=== PATIENT | female | born 1980 | race Caucasian/White ===

== ENCOUNTER 2019-10-30 20:51 | Outpatient (REF) | payer SELFPAY ==
[2019-11-03 23:17] LABS: SARS-CoV-2 RNA Undetected (Undetected); SARS-CoV-2 Specimen Source Nasopharynx
== END 2019-10-30 21:11 ==
LOC: NCHCN 20:51
PROVIDERS: PCP Family Medicine; Visit Provider Nurse Practitioner Family
DX: R50.9 Fever, unspecified (principal); R05 Cough; R51 Headache
CPT/HCPCS: U0003

== ENCOUNTER 2020-03-19 02:32 | Outpatient (CLI) | payer OTHER, SELFPAY ==
[2020-03-19 07:38] LABS: HCT 40.7 % (36.0-46.0); HGB 13.6 g/dL (11.2-15.7); MCH 30.8 pg (27.0-33.0); MCHC 33.4 % (32.0-36.0); MCV 92.1 fL (80-95); MPV 9.3 fL (8.0-11.0); Platelet Count 312 10^3/uL (130-400); RBC 4.42 10^6/uL (3.93-5.22); WBC 5.11 10^3/uL (4.4-10.8)
[2020-03-19 08:21] LABS: ALT 31 U/L (14-59); AST 14 U/L (15-37); Albumin 3.7 g/dL (3.4-5.0); Alkaline Phosphatase 52 U/L (46-116); Anion Gap 6.1 mmol/L (3-11); BUN 20 mg/dL (7-18); Bilirubin, Total 0.5 mg/dL (0.2-1.0); CO2 27.9 mmol/L (21.0-32.0); Calcium 8.8 mg/dL (8.5-10.1); Calculated LDL 61 mg/dL (<100); Chloride 102 mmol/L (98-107); Cholesterol 159 mg/dL (<200); Glucose 107 mg/dL (74-106); HDL Cholesterol 82 mg/dL (40-60); Potassium 4.3 mmol/L (3.5-5.1); Sodium 136 mmol/L (136-145); TSH (W/Ref FT4) 2.16 uIU/mL (0.36-3.74); Total Protein 6.9 g/dL (6.4-8.2); Triglyceride 82 mg/dL (<150)
== END 2020-03-19 02:52 ==
PROVIDERS: PCP Family Medicine; Visit Provider Family Medicine
DX: Z00.00 Encounter for general adult medical examination without abnormal findings (principal); F41.8 Other specified anxiety disorders; K21.9 Gastro-esophageal reflux disease without esophagitis
CPT/HCPCS: 36415; 80053; 80061; 85027; 84443

== ENCOUNTER 2020-05-28 15:51 | Outpatient (REF) | payer OTHER, SELFPAY ==
--- NOTE | 2020-05-28 15:00 | PAPFT_PTH ---
PATIENT: Bee Ramriez LOC: [facility]#:[id number] AGE/SX: 40/F ROOM: RE05/28/[address]: Lilliana Mcmillan : 1980 BED: DIS: 05/28/2020 SPEC #: [id number] RECD: 05/31/20 12:57 STATUS: [place] #: [id number] KYLER: 05/28/20 15:[address]: Lilliana Mcmillan DEPT: [facility] Cytology RECD BY: Imelda Brar Tissues: 1 - CX/ENDOCX FOR PAP SMEARS Procedures: PAP THIN PREP/UVM Screening HPV DNA PROBE Comments: [id number]
== END 2020-05-28 15:52 | disposition home or self-care (01) ==
LOC: NCHCN 15:51
PROVIDERS: PCP Family Medicine; Visit Provider Family Medicine
DX: Z00.00 Encounter for general adult medical examination without abnormal findings (principal); Z12.4 Encounter for screening for malignant neoplasm of cervix; Z01.419 Encounter for gynecological examination (general) (routine) without abnormal findings; Z11.51 Encounter for screening for human papillomavirus (HPV)
CPT/HCPCS: 88142; 87624

== ENCOUNTER 2022-04-25 14:04 | Emergency (ER) | payer OTHER, SELFPAY ==
--- NOTE | 2022-04-25 14:00 | DI.RAD_ITS ---
Exam(s) XR WRIST LT COMPLETE EXAM: XR WRIST LT COMPLETE CLINICAL HISTORY: Left wrist pain. TECHNIQUE: 2D digital imaging was performed. COMPARISON: No exams were available for comparison FINDINGS: 3 views No evidence of acute fracture or dislocation. Scaphoid and lunate appear unremarkable as does the sc apholunate distance. There is negative ulnar variance by approximately 5 millimeters incidentally no niranjan. No osseous lesions. IMPRESSION: No acute osseous findings. Negative ulnar variance incidentally noted. DATA REPOSITORY: RADIATION DOSE DELIVERED:
[2022-04-25 14:07] VITALS: BP 150/94; PULSE 99; TEMP 37.5; O2SAT 100
--- NOTE | 2022-04-25 14:11 | ED.GENADUL_ITS ---
Discharge Plan Disposition Patient Disposition: Home Condition: Stable Discharge Details Clinical Impression: Arthralgia of left wrist Primary Care Provider: Lilliana Mcmillan ED Provider: Dian Desai Home Meds and New Rx's Prescriptions: New diclofenac sodium 1 % gel 2 g topical QID PRN (Reason: joint pain) Qty: 100 0RF Rx Instructions: apply to single elbow, wrist or hand; for hand includes palm/fingers/back of hand No Action ibuprofen 200 MG tablet 800 mg PO PRN PRN buspirone 5 MG tablet 10 mg PO BID ondansetron 4 MG tablet,disintegrating 4 mg PO Q6H PRNQty: 15 0RF magnesium 500 mg Tablet 500 mg PO DAILY clonazepam 0.5 mg tablet 0.25 mg PO PRN PRN Patient Comments: Take 1 tablet by mouth once a day as needed dextroamphetamine-amphetamine 20 mg capsule,extended release 24hr 20 mg PO BID norethindrone ac-eth estradiol 1-20 mg-mcg tablet 1 tab PO DAILY cholecalciferol (vitamin D3) [Vitamin D3] 25 mcg (1,000 unit) Capsule 1,000 unit PO DAILY duloxetine [Cymbalta] 30 mg capsule,delayed release(DR/EC) 30 mg PO DAILY omeprazole 20 mg tablet,delayed release (DR/EC) 20 mg PO DAILY Patient Comments: Take 1 tablet by mouth once a day Discharge Instructions Instructions: Arthralgia (ED) Additional Instructions: The x-rays show no acute injury however you do have slight variance on your ulnar bone. This could be contributing to your pain. If you continue to have pain after using the splint as needed for comfort, and applying the topical gel please follow-up with orthopedics if needed. For further evaluation and treatment. Please take Tylenol or Ibuprofen with food every 4-6 hours as needed for pain and swelling. Follow up with primary care provider in 3-5 days. Return to ED sooner if any worsening or concerns. Increase oral fluids. Stand Alone Forms: Work Release Referrals: Lilliana Mcmillan [Primary Care Provider] - 5 days Antony López MD [ [facility] STAFF PHYSICIAN] - 2 weeks Medical Decision Making X-ray ordered to rule out arthritis. See x-ray results below no acute osseous findings. There is a incidental negative ulnar variance noted. Will place patient in a universal wrist splint instructed on RICE procedures and follow-up if needed. This text was generated using [employer] dictation system, please disregard any oddities of phrase or misspellings. Imaging Data Radiologic Study: Imaging: X-Ray Radiologist's impression: EXAM: XR WRIST LT COMPLETE CLINICAL HISTORY: Left wrist pain. TECHNIQUE: 2D digital imaging was performed. COMPARISON: No exams were available for comparison FINDINGS: 3 views No evidence of acute fracture or dislocation. Scaphoid and lunate appear unremarkable as does the scapholunate distance. There is negative ulnar variance by approximately 5 millimeters incidentally noted. No osseous lesions. IMPRESSION: No acute osseous findings. Negative ulnar variance incidentally noted. HPI General Mode of arrival: ambulatory . Date/Time Provider Initiated Documentation: 04/25/22 14:08 . Limitations to Documentation: no limitations . Information obtained by: patient, RN notes reviewed and old records reviewed . HPI Narrative: 42-year-old female presents to the ER with chief complaint of left wrist pain which began acutely today. She does however report some aching while she has been sleeping. Denies any known injury. She does have pinpoint tenderness on the radial aspect of her volar wrist. Denies any numbness tingling. No obvious deformity redness or swelling. She has been taking ibuprofen for pain with some relief. Does have a past medical history of migraines sciatic nerve lesion. She is allergic to prednisone. Related Data Home Medications Medication Instructions Recorded Confirmed ibuprofen 200 mg tablet 800 mg PO PRN PRN 04/07/15 09/02/16 buspirone 5 mg tablet 10 mg PO BID 09/02/16 04/25/22 ondansetron 4 mg disintegrating 4 mg PO Q6H PRN ##15 09/02/16 04/25/22 tablet cholecalciferol (vitamin D3) 25 1,000 unit PO DAILY 04/25/22 04/25/22 mcg (1,000 unit) capsule (Vitamin D3) clonazepam 0.5 mg tablet 0.25 mg PO PRN PRN 04/25/22 04/25/22 dextroamphetamine-amphetamine ER 20 mg PO BID 04/25/22 04/25/22 20 mg 24hr capsule,extend release diclofenac sodium 1 % topical gel 2 g topical QID PRN joint pain 04/25/22 #100 grams duloxetine 30 mg capsule,delayed 30 mg PO DAILY 04/25/22 04/25/22 release (Cymbalta) magnesium 500 mg tablet 500 mg PO DAILY 04/25/22 04/25/22 norethindrone acetate 1 mg-ethinyl 1 tab PO DAILY 04/25/22 04/25/22 estradiol 20 mcg tablet omeprazole 20 mg tablet,delayed 20 mg PO DAILY 04/25/22 04/25/22 release Previous Rx's Medication Instructions Recorded ondansetron 4 mg disintegrating 4 mg PO Q6H PRN ##15 09/02/16 tablet diclofenac sodium 1 % topical gel 2 g topical QID PRN joint pain 04/25/22 #100 grams Allergies Allergy/AdvReac Type Severity Reaction Status Date / Time prednisone AdvReac go crazy Unverified 04/25/22 14:12 General Stated Complaint: Orthopedic SHARON: 4 Review of Systems All systems reviewed & are unremarkable except as noted in HPI and below Musculoskeletal Musculoskeletal: Reports as per HPI, Denies deformity, Reports arthralgias, Denies joint swelling, Denies numbness and Denies tingling Neurologic Neurologic: Denies numbness and Denies tingling PFSH All Active Problems (Updated 04/25/22 @ 15:05 by Dian Desai NP) Arthralgia of left wrist (Acute) Cervical paraspinous muscle spasm (Acute) Depressed (Chronic) Medical History (Updated 04/25/22 @ 15:05 by Dian Desai NP) Migraine Sciatic nerve lesion Surgical History History of discectomy Social History Smoking/Tobacco Use Status: Never Smoking risk assessment performed?: Yes Alcohol Intake: former Drug use: Never Substance use type: does not use Do you feel safe at home: Yes Do you feel safe in your relationship?: Yes Exam Extrem Left upper extremity: wrist Details: tenderness Location: of the distal radius and of the volar wrist and normal ROM; no swelling Hand/finger images: 1. Pinpoint tenderness no surrounding erythema, deformity, no crepitus. Pulses intact. Hand is slightly cool cap refill less than 3 seconds denies any numbness tingling Course Vital Signs Vital signs: Vital Signs Temperature 37.5 C 04/25/22 14:07 Pulse 99 H 04/25/22 14:07 Blood Pressure 150/94 H 04/25/22 14:07 Pulse Oximetry 100 04/25/22 14:07 Temperature 37.5 C 04/25/22 14:07 Temperature Source Tympanic 04/25/22 14:07 Pulse 99 H 04/25/22 14:07 Blood Pressure 150/94 H 04/25/22 14:07 Blood Pressure Position Sitting 04/25/22 14:07 Pulse Oximetry 100 04/25/22 14:07 Oxygen Delivery Method Room Air 04/25/22 14:07 Oxygen Flow Rate 0 04/25/22 14:07
== END 2022-04-25 15:29 | disposition home or self-care (01) ==
PROVIDERS: Emergency Provider Registered Nurse Emergency; PCP Family Medicine
DX: M25.532 Pain in left wrist (principal)
CPT/HCPCS: 99283; 73110; 99282

== ENCOUNTER 2022-06-17 12:22 | Outpatient (REF) | payer OTHER, SELFPAY | END 2022-06-17 12:23 | disposition home or self-care (01) | LOC: LBN 12:22 | PROVIDERS: PCP Family Medicine; Visit Provider Nurse Practitioner Family | DX: N30.01 Acute cystitis with hematuria (principal) | CPT/HCPCS: 87077; 87086; 87186 ==

== ENCOUNTER 2023-02-02 16:09 | Outpatient (REF) | payer OTHER, SELFPAY ==
[2023-02-02 21:33] LABS: FREE T4 0.77 ng/dL (0.76-1.46); TSH 1.33 uIU/mL (0.36-3.74)
[2023-02-03 22:06] LABS: T3,Free 3.5 pg/mL (2.8-5.3)
[2023-02-03 22:19] LABS: T3, Total 105 ng/dL (97-169)
== END 2023-02-02 16:10 | disposition home or self-care (01) ==
LOC: NCHCN 16:09
PROVIDERS: PCP Family Medicine; Visit Provider Family Medicine
DX: E04.1 Nontoxic single thyroid nodule (principal)
CPT/HCPCS: 84436; 84439; 84443; 84480; 84481

== ENCOUNTER 2023-06-12 10:07 | Day surgery (SDC) | payer OTHER, SELFPAY ==
[2023-06-12] VITALS (9 sets, daily range): BP systolic 84–142; BP diastolic 46–99; PULSE 68–90; RESP 10–166; TEMP 36–36.6; O2SAT 96–100; BMI 34.9
--- NOTE | 2023-06-12 07:25 | PDOC.DSDIS_ITS ---
Date of service: 06/12/23 Time of Service: 07:25 Discharge Plan Disposition Patient Disposition: Home Condition: Good Discharge Details Reason For Visit: Trapezial arthroplasty left thumb Attending Provider: Antony López Primary Care Provider: Lilliana Mcmillan Home Meds and New Rx's Prescriptions: New acetaminophen 500 mg tablet 1,000 mg PO TID Qty: 90 3RF ibuprofen 600 mg tablet 600 mg PO TID PRNQty: 90 3RF oxycodone 5 mg tablet 5 mg PO Q8H MDD 15mg PRN (Reason: pain) Qty: 10 0RF Continued fluoxetine [Prozac] 10 mg capsule 10 mg PO DAILY fluticasone furoate 27.5 mcg/actuation spray,suspension 1 spray intranasal DAILY Rx Instructions: into each nostril magnesium 500 mg Tablet 500 mg PO DAILY cholecalciferol (vitamin D3) [Vitamin D3] 25 mcg (1,000 unit) Capsule 1,000 unit PO DAILY omeprazole 20 mg tablet,delayed release (DR/EC) 20 mg PO DAILY Patient Comments: Take 1 tablet by mouth once a day diclofenac sodium 1 % gel 2 g topical QID PRN (Reason: joint pain) Qty: 100 0RF Rx Instructions: apply to single elbow, wrist or hand; for hand includes palm/fingers/back of hand Discontinued ibuprofen 200 MG tablet 800 mg PO PRN PRN Discharge Instructions Additional Instructions: Thumb CMC Discharge Instructions Activity: You should keep the hand/thumb elevated as much as possible for the first few days. You may use the other fingers as tolerated but avoid trying to do too much too soon. You may perform light activities with the splint in place. Dressing/Cast: Your splint should stay in place at all times. Do NOT get it wet. You may loosen the SHADI wrap if you feel it is too tight and then rewrap more loosely. Medications: - You should take Tylenol and Ibuprofen for baseline pain control. - You have Oxycodone for breakthrough pain. - You may apply ice over the thumb. Follow-up: 10-14 days Referrals: Antony López MD [ [facility] STAFF PHYSICIAN] - Equipment/Supplies: Splint Activity:: Elevate Remove Dressings/Wound Care:: Do Not Remove Shower/Bathe:: Cover Diet:: As Tolerated Discharge Orders Discharge Orders: Discharge Order (Routine); Ordered 06/12/23 Ordered By: Mason Carrera DS: Diagnosis Discharge Diagnosis (1) Arthritis of carpometacarpal (CMC) joint of left thumb: Status: Acute
--- NOTE | 2023-06-12 09:30 | W.ANESPRE ---
General Info Date of Service Date Performed: 06/12/23 Height: 5 ft 8 in Weight: 104.326 kg Body Mass Index (BMI): 34.9 Surgical Procedure: Operation Date: 06/12/23 13:25 Proposed Procedure Side Surgeon p CMC Arthroplasty Left Antony López MD Meds Allergies and Home Medications Allergies Allergy/AdvReac Type Severity Reaction Status Date / Time prednisone AdvReac go crazy Verified 06/12/23 10:22 Home Medication Medication Instructions Recorded cholecalciferol (vitamin D3) 25 1,000 unit PO DAILY 04/25/22 mcg (1,000 unit) capsule (Vitamin D3) diclofenac sodium 1 % topical gel 2 g topical QID PRN joint pain 04/25/22 #100 grams magnesium 500 mg tablet 500 mg PO DAILY 04/25/22 omeprazole 20 mg tablet,delayed 20 mg PO DAILY 04/25/22 release fluticasone furoate 27.5 1 spray intranasal DAILY 05/16/22 mcg/actuation nasal spray,suspension fluoxetine 10 mg capsule (Prozac) 15 mg PO DAILY 10/09/22 acetaminophen 500 mg tablet 1,000 mg (2 x 500 mg) PO TID #90 06/12/23 tabs ibuprofen 600 mg tablet 600 mg PO TID PRN #90 tabs 06/12/23 oxycodone 5 mg tablet 5 mg PO Q8H PRN pain #10 tabs 06/12/23 Current Visit Medications: Current Medications Generic Name Dose Route Start Last Admin Trade Name Freq PRN Reason Stop Dose Admin Acetaminophen 1,000 mg 06/12/23 06:00 Acetaminophen 500 Mg Tab PO 07/11/23 23:59 PREOP ANDREW Acetaminophen 650 mg 06/12/23 07:23 Acetaminophen 325 Mg Tab PO 07/12/23 07:22 Q4H PRN PRN Celecoxib 400 mg 06/12/23 06:00 Celecoxib 200 Mg Cap PO 07/11/23 23:59 PREOP ANDREW Ringer's Solution 1,000 mls @ 80 mls/hr 06/12/23 06:00 IV 07/11/23 23:59 INFUSION ANDREW Cefazolin Sodium/Dextrose 2 gm in 50 mls @ 100 mls/hr 06/12/23 06:00 Ancef Duplex IVPB 07/11/23 23:59 PREOP ANDREW IV Miscellaneous Supplies 1 each 06/12/23 06:00 Iv Access IV 07/11/23 23:59 DIRECTED ANDREW Oxycodone HCl 5 mg 06/12/23 07:23 Oxycodone 5 Mg Tab PO 07/12/23 07:22 Q3H PRN PRN Pain Sodium Chloride 0 ml 06/12/23 06:00 Normal Saline Flush 10 Ml Syr IV 07/11/23 23:59 PRN PRN Sodium Chloride 0 ml 06/12/23 06:00 Normal Saline 10 Ml Vial IJ 07/11/23 23:59 DIRECTED PRN Sterile Water 0 ml 06/12/23 06:00 Water,Injection,Sterile 10 Ml Vial IJ 07/11/23 23:59 DIRECTED PRN PFSH Active Problems Active Problems: Problem Status Onset Code Arthritis of carpometacarpal (CMC) joint of left thumb M18.12 Cervical paraspinous muscle spasm M62.838 Depressed F32.9 Medical History Medical History Obesity Menorrhagia Allergic rhinitis PTSD (post-traumatic stress disorder) Pt. states no potential triggers ADHD Pt. states no longer Anxiety Sciatic nerve lesion Migraine Medical History Comments:: Pt. states the day after her discectomy she vagaled the following day, she also states she gets emotional. Surgical History Surgical History History of discectomy Tobacco Smoking/Tobacco Use Status: Never Alcohol Alcohol Intake: never Substance Use Substance use: Never Substance use type: does not use Vital Signs and Lab Results Vital Signs Most Recent Vital Signs in EMR: Temp Pulse Resp BP Pulse Ox 36 C L 90 18 142/99 H 98 06/12/23 10:10 06/12/23 10:10 06/12/23 10:10 06/12/23 10:10 06/12/23 10:10 Lab Results Blood Type / Crossmatch: No Data to Display Complete Blood Count: No Data to Display Complete Metabolic Panel: No Data to Display Liver Function Panel: No Data to Display Coagulation Panel: No Data to Display Cardiac Panel: No Data to Display Arterial Blood Gas: No Data to Display Venous Blood Gas: No Data to Display Pancreas Panel: No Data to Display Thyroid Panel: No Data to Display Infectious Disease: No Data to Display Blood Cultures: No Data to Display Toxicology Panel: No Data to Display Panel: No Data to Display Anesthesia Assessment and Plan Anesthesia History Personal History: No History of Anesthesia Complications Family History: No Family History of Anesthesia Complications Exercise Tolerance Exercise Tolerance: Metabolic Equivalents>4 Pertinent Negatives Pertinent Negatives: No Major Cardiovascular Symptoms or Complaints and No Major Pulmonary Symptoms or Complaints Cardiac & Pulmonary Exam Cardiac Exam: Normal S1/S2 Heart Sounds Pulmonary Exam: Clear Bilateral Breath Sounds Implantable Cardiac Device Does patient have a Pacemaker or an ICD?: No Airway Exam Known Difficult Airway: No Mallampati Class: 1 Mouth Opening: Normal (> 3cm) Thyromental Distance: Greater than 3 cm Neck Range of Motion: Full ROM Neck Circumference: Normal Teeth Condition: Normal Dentition ASA Classification ASA Score: ASA 2 Emergency Case?: No NPO Status NPO Status: NPO Clears >2 hours, Solids >8 hours Status Status: Negative HCG Anesthesia Plan Resuscitation Status: Full Code Anesthesia Technique: General Anesthesia Airway Planned: LMA Monitors Used: Standard Monitors Preoperative Comments:: 43 yo female for CMC arthroplasty Sig PMHx: migraine, ADHD, anxiety/depression. never smoker.
[2023-06-12] MEDS: Celecoxib 200 MG CAP 400 MG PO (10:30)
[2023-06-12] MEDS: Lactated Ringers 1,000 ML 80 ML IV (10:40)
--- NOTE | 2023-06-12 11:41 | W.PREOPHP ---
Assessment and Plan Assessment and plan (1) Arthritis of carpometacarpal (CMC) joint of left thumb: Status: Acute Assessment and plan: Bee is a 43-year-old female who has arthritis about her left thumb CMC joint. She has failed other nonoperative options and is here today for CMC arthroplasty. I discussed the technical details of the case and rehabilitation. I reviewed the risk to include bleeding, infection, pain, stiffness, damage to nerves and vessels, damage to muscles and tendons, subsidence, need for repeat procedures. Despite these risks, she elects to proceed. History of Present Illness History of Present Illness Chief Complaint: Left thumb pain Narrative: Bee is a 43-year-old female who has had ongoing pain about her left thumb. She has been diagnosed with thumb CMC arthritis and has failed other nonoperative options and is here today for thumb CMC arthroplasty. Please see the previous office note for complete detailed history. She reports no other changes to her medical profile. She does have some occasional issues with migraine and the stress of surgery is brought on today. However, the headache is her only current symptom. Review of Systems All systems reviewed & are unremarkable except as noted in HPI and below PFSH All Active Problems Arthritis of carpometacarpal (CMC) joint of left thumb (Acute) S/P Trapezial arthroplasty left thumb: 06/12/2023 Cervical paraspinous muscle spasm (Acute) Depressed (Chronic) Medical History Obesity Menorrhagia Allergic rhinitis PTSD (post-traumatic stress disorder) Pt. states no potential triggers ADHD Pt. states no longer Anxiety Sciatic nerve lesion Migraine Surgical History History of discectomy Social History Smoking/Tobacco Use Status: Never Smoking risk assessment performed?: Yes Alcohol Intake: never Drug use: Never Substance use type: does not use Housing: house Do you feel safe at home: Yes Do you feel safe in your relationship?: Yes Additional Social history: unable to assess privately Meds Allergies and Home Medications Allergies Allergy/AdvReac Type Severity Reaction Status Date / Time prednisone AdvReac go crazy Verified 06/12/23 10:22 Home Medications Medication Instructions Recorded Confirmed Type cholecalciferol (vitamin D3) 25 1,000 unit PO DAILY 04/25/22 06/12/23 History mcg (1,000 unit) capsule (Vitamin D3) diclofenac sodium 1 % topical gel 2 g topical QID PRN joint pain 04/25/22 06/12/23 Rx #100 grams magnesium 500 mg tablet 500 mg PO DAILY 04/25/22 06/12/23 History omeprazole 20 mg tablet,delayed 20 mg PO DAILY 04/25/22 06/12/23 History release fluticasone furoate 27.5 1 spray intranasal DAILY 05/16/22 06/12/23 History mcg/actuation nasal spray,suspension fluoxetine 10 mg capsule (Prozac) 15 mg PO DAILY 10/09/22 06/12/23 History acetaminophen 500 mg tablet 1,000 mg (2 x 500 mg) PO TID #90 06/12/23 Rx tabs ibuprofen 600 mg tablet 600 mg PO TID PRN #90 tabs 06/12/23 Rx oxycodone 5 mg tablet 5 mg PO Q8H PRN pain #10 tabs 06/12/23 Rx Exam Const General: cooperative, healthy appearing, comfortable and no acute distress Resp Effort & Inspection: normal respiratory effort Auscultation: clear to auscultation bilaterally Cardio Rate: regular rate Rhythm: regular rhythm Results Last Vital Signs Temp 36 C L 06/12/23 10:10 Pulse 90 06/12/23 10:10 Resp 18 06/12/23 10:10 BP 142/99 H 06/12/23 10:10 Pulse Ox 98 06/12/23 10:10
[2023-06-12] MEDS: ceFAZolin 2 GM/50 ML BAG IVPB (11:45)
[2023-06-12] MEDS: Bupivacaine 0.25% Pres-Free 30 ML VIAL (12:00)
--- NOTE | 2023-06-12 13:01 | DI.RAD_ITS ---
Exam(s) XR HAND LT LIMITED EXAM: XR HAND LT LIMITED CLINICAL HISTORY: Arthritis of (CMC) joint of left thumb. TECHNIQUE: 2D digital imaging was performed. COMPARISON: No exams were available for comparison FINDINGS: Fluoroscopy provided during therapeutic procedure of the 1st carpometacarpal joint. See procedure report for details. Total fluoroscopy time 2 seconds IMPRESSION: Radiation exposure index/cumulative dose: Ka,r= 0.0096 mGy DATA REPOSITORY: RADIATION DOSE DELIVERED:
[2023-06-12] MEDS: fentaNYL 100 MCG/2 ML VIAL IVP ×3 (13:27→13:46)
--- NOTE | 2023-06-12 13:39 | W.ANESPOSTOP ---
Postoperative Evaluation Date, Time and Location Date Performed: 06/12/23 Time Performed: 13:39 Patient Location: PACU Vital Signs Most Recent Imported Vital Signs: Most Recent Vital Signs Temp Pulse Resp BP Pulse Ox 36.4 C L 78 12 104/55 L 99 06/12/23 13:30 06/12/23 13:30 06/12/23 13:30 06/12/23 13:30 06/12/23 13:30 Pain Score Most Recent Pain Score: Most Recent Pain Score Pain Level 4 06/12/23 13:30 Assessment Mental Status: Awake (Alert & Oriented to Patient Baseline) Airway and Respiratory Function: Patent airway with normal (patient baseline) respiratory exam Cardiovascular Function: Hemodynamically Stable Hydration Status: Adequately Hydrated Nausea & Vomiting: No Nausea or Vomiting Pain: Pain is Moderate or Severe Postoperative Pain Management: Pain being addressed with medication Peripheral Nerve Block: Patient did not receive a nerve block
--- NOTE | 2023-06-12 13:56 | W.PM.OP ---
Date of service: 06/12/23 Time of Service: 11:45 Operative Note Operative Note DATE OF PROCEDURE: 06/12/23 PRE-OP DIAGNOSIS: Left Thumb CMC Arthritis POST-OP DIAGNOSIS: same PROCEDURE: Left trapezial resection arthroplasty with suture suspensionplasty SURGEON: Antony López MECHANIC SOUND TECHNICIAN: Mason Carrera ANESTHESIA TYPE: General LMA/ETT Refer to Anesthesia Record ESTIMATED BLOOD LOSS: 10 PATHOLOGY: none sent TOURNIQUET TIME: 45 COMPLICATIONS: None Patient was transported to: PACU Patient's condition: stable Indications: Bee is a 43 year old female who has had symptoms of thumb CMC arthritis with pain and decreased mobility. Nonoperative treatment options had been trialed. Given their failure, I offered operative intervention. I reviewed the technical details. I reviewed the risk of the procedure to include bleeding, infection, pain, stiffness, instability, subsidence, damage to neighboring arteries, damage to the superficial radial nerve, and weakness. Despite these risks, the patient elected to proceed. Findings: There is notable arthrosis between the trapezium and the first metacarpal. There are large osteophytes around the entirety of the trapezium. Procedure Description: Bee was greeted in the preoperative holding area. Name and surgical site were confirmed. The history and physical was completed. The consent was reviewed the patient and signed. She was taken back to the operating room. The patient was placed and monitored anesthesia care. The left was then prepped with ChloraPrep and draped in a standard fashion after a nonsterile tourniquet was placed high up onto the arm. Prophylactic antibiotics in the form of cefazolin were administered. A timeout was performed for safe surgery. The surgical site was drawn on the skin overlying the dorsal radial border of the wrist. The planned surgical field was anesthetized with 0.25% bupivacaine with epinephrine. The limb was exsanguinated and the tourniquet was inflated where it stayed for 45 minutes. A 3 cm incision was made longitudinally over the radial wrist from the level of the radial styloid to just past the base of the first metacarpal. The skin was incised only. The deep tissue and subcutaneous fat was dissected with a tenotomy scissors trying to protect branches of the superficial radial nerve. Any branches that were identified were retracted out of the way. The first compartment extensor tendons were then identified. The interval between EPL and EPB was identified. The base of the first metacarpal was palpated. A needle was placed into the joint between the first metacarpal and the trapezium. A single x-ray was used to confirm appropriate positioning. The capsule of the trapezium was then incised. The radial border of the bone was identified. Soft tissues around trapezium were dissected bluntly to allow relaxation of vital arterial structures traversing the trapezium. Using a Latimer blade the capsule was elevated off the trapezium in a subperiosteal fashion. Once it appeared to have all the capsular attachments released, the trapezium was then removed using a rongeur. The wound was inspected to make sure all portions of the trapezium were removed. X-ray was used to confirm appropriate removal of all bony fragments. The wound was then thoroughly irrigated. Using a 2-0 FiberWire then performed a suture suspensionplasty. This was done by incorporating capsule and attachments of the APL at the base of the first metacarpal and creating a sling connected to the deep flexor carpi radialis tendon seen traversing deep within the wound towards the second metacarpal. This was done twice to create a crossing network of 2-0 suture. This was then tied overlying the base of the first metacarpal making sure not to over tighten and hourglass the tendons. This provided support to the first metacarpal to prevent any excessive subsidence. The tourniquet was then released. There is no significant bleeding. The capsule of the trapezium was then reapproximated with a 2-0 Vicryl. The skin was closed with 3-0 Vicryl and a subcuticular 4-0 Monocryl, reinforced with skin glue. The hand was dressed with 4 x 4's, Kerlex and SHADI to create a soft, thumb spica splint. All counts were correct. Patient was transferred back to PACU in a stable condition.
== END 2023-06-12 14:40 | disposition home or self-care (01) ==
PROVIDERS: PCP Family Medicine; Visit Provider Student in an Organized Health Care Education/Training Program
PROC: (CPT 25447; principal; 2023-06-12 13:15)
DX: M18.12 Unilateral primary osteoarthritis of first carpometacarpal joint, left hand (principal); E66.9 Obesity, unspecified; F41.9 Anxiety disorder, unspecified
CPT/HCPCS: 25447; 76000; 73120; J0665; J0690; J1100; J2001; J2250; J2405; J2704; J3010; J3475

== ENCOUNTER → 2023-08-20 02:48 | Outpatient (CLI) | payer OTHER, SELFPAY ==
--- NOTE | 2023-08-20 | DI.MAMMO_ITS ---
Exam(s) MAMMO SCREENING EXAM: MAMMO SCREENING CLINICAL HISTORY: Z12.31 Screening. TECHNIQUE: Bilateral full field digital CC and MLO mammographic images were obtained with 3D tomosyn thesis and utilizing computer aided detection (CAD). COMPARISON: None. This is a baseline mammogram on 44-year-old. FINDINGS: No CAD designations. There are no spiculated masses nor malignant appearing microcalcification groups. There is no significant architectural distortion nor skin thickening-retraction. IMPRESSION: No radiographic evidence of malignancy. BI-RADS Category 1 - Negative Breast Density - Category B - Scattered areas of fibroglandular density Breast density Category C or D implies that the patient has dense breast tissue. Dense breast tissue can make it harder to find cancer on a mammogram. Dense breast tissue is also associated with an incr eased risk of breast cancer. This information about the result of the mammogram report was provided to the patient to raise their awareness. Use this report when you speak with the patient about their risks for breast cancer, which includes their family history. At that time, you may recommend additional screening tests (Ultrasoun d or MRI) as these tests may add significant information. A negative radiographic report should not delay biopsy if a dominant or clinically suspicious mass is present. Up to ten percent of cancers are not identified on mammography. A negative report may reinforce clinical impression. Adenosis and dense breasts may obscure an underlying neoplasm. False positive reports average 6 to 10%. Patient will receive a letter notifying them of these results.
== END ==
PROVIDERS: PCP Family Medicine; Visit Provider Family Medicine
DX: Z12.31 Encounter for screening mammogram for malignant neoplasm of breast (principal)
CPT/HCPCS: 77063; 77067

== ENCOUNTER 2024-03-10 15:48 | Outpatient (CLI) | payer OTHER, SELFPAY ==
--- NOTE | 2024-03-10 15:40 | DI.RAD_ITS ---
Exam(s) XR WRIST LT COMPLETE EXAM: XR WRIST LT COMPLETE CLINICAL HISTORY: pain/stiffness. TECHNIQUE: 2D digital imaging was performed. Three views. COMPARISON: CR XR WRIST LT COMPLETE from 04/25/2022 CR XR HAND LT LIMITED from 06/12/2023 FINDINGS: BONES: Resection of the trapezium noted. Few small bony fragments are seen in this location. No acu te fracture is present. No bony destructive lesion is seen. JOINTS: The carpal bones are normally aligned. Mild negative ulnar variance again noted. SOFT TISSUE: Normal. IMPRESSION: Status post resection of the trapezium. DATA REPOSITORY: RADIATION DOSE DELIVERED:
== END 2024-03-10 15:49 | disposition home or self-care (01) ==
LOC: DIORS 15:48
PROVIDERS: PCP Family Medicine; Visit Provider Physician Assistant
DX: M18.12 Unilateral primary osteoarthritis of first carpometacarpal joint, left hand (principal)
CPT/HCPCS: 73110

== ENCOUNTER 2024-10-28 15:00 | Outpatient (CLI) | payer OTHER, SELFPAY ==
--- NOTE | 2024-10-28 15:45 | DI.MAMMO_ITS ---
Exam(s) MAMMO SCREENING EXAM: MAMMO SCREENING CLINICAL HISTORY: screening. TECHNIQUE: Bilateral full field digital CC and MLO mammographic images were obtained with 3D tomosynthesis and utilizing computer aided detection (CAD). COMPARISON: Prior baseline mammogram of August 2023. FINDINGS: There has been no significant change in the appearance and distribution of the fibroglandular tissue. There are no CAD designations. There are no new spiculated masses nor malignant appearing microcalcification groups. There is no significant architectural distortion nor skin thickening-retraction. IMPRESSION: No radiographic evidence of malignancy. BI-RADS Category 1 - Negative Breast Density - Category B - There are scattered areas of fibroglandular density. Breast density Category C or D implies that the patient has dense breast tissue. Dense breast tissue can make it harder to find cancer on a mammogram. Dense breast tissue is also associated with an increased risk of breast cancer. This information about the result of the mammogram report was provided to the patient to raise their awareness. Use this report when you speak with the patient about their risks for breast cancer, which includes their family history. At that time, you may recommend additional screening tests (Ultrasound or MRI) as these tests may add significant information. A negative radiographic report should not delay biopsy if a dominant or clinically suspicious mass is present. Up to ten percent of cancers are not identified on mammography. A negative report may reinforce clinical impression. Adenosis and dense breasts may obscure an underlying neoplasm. False positive reports average 6 to 10%. Patient will receive a letter notifying them of these results.
== END 2024-10-28 15:20 ==
LOC: DI 15:00
PROVIDERS: PCP Family Medicine; Visit Provider Obstetrics & Gynecology
DX: Z12.31 Encounter for screening mammogram for malignant neoplasm of breast (principal); R92.323 Mammographic fibroglandular density, bilateral breasts
CPT/HCPCS: 77063; 77067